=== PATIENT | female | born 1950 | race Caucasian/White ===

== ENCOUNTER 2016-12-27 22:55 | Emergency (ER) | payer MEDICARE, OTHER ==
[2016-12-27 23:59] LABS: HEMOGLOBIN 14.6 gm/dl (12.3-15.3); RED BLOOD COUNT 4.35 M/UL (4.00-5.10); WHITE BLOOD COUNT 8.1 K/UL (4.5-11.0)
[2016-12-28 00:13] LABS: BUN/CREATININE RATIO 24 (0-10)
== END 2016-12-28 00:46 | disposition home or self-care (01) ==
LOC: ER1 22:55
PROVIDERS: Family Medicine
DX: E11.649 Type 2 diabetes mellitus with hypoglycemia without coma (principal); E87.6 Hypokalemia; I10 Essential (primary) hypertension; F17.200 Nicotine dependence, unspecified, uncomplicated; Z95.1 Presence of aortocoronary bypass graft; Z95.5 Presence of coronary angioplasty implant and graft; Z79.4 Long term (current) use of insulin; Z79.84 Long term (current) use of oral hypoglycemic drugs; Z79.899 Other long term (current) drug therapy
CPT/HCPCS: 36415; 80053; 82962; 85025; 96374; 99285

== ENCOUNTER 2020-08-05 13:24 | Inpatient (IN) | payer MEDICARE ==
[~2020-08-05] VITALS: Ht 160 cm; Wt 59.0 kg
[~2020-08-05 13:24] MED LIST: BACTRIM DS TAB1 EACH PO; COREG6.25 MG PO; CYMBALTA 30 MG30 MG PO; DITROPAN XL5 MG PO; ECOTRIN325 MG PO; FOLIC ACID 1 MG1 MG PO; GLUCOPHAGE1000 MG PO; HABITROL 14 MG P1 EA TD; LORTAB 7.5-3251 EACH PO; METHOTREXATE T2.5 MG PO; NORCO 10-325 T1 EACH PO; NORCO 5-325 TA1 EACH PO; NOVOLOG 10100 UNITS1 SC; NOVOLOG FL100 UNIT/1 SC; OMNICEF 300 MG300 MG PO; PLAVIX 75 MG TA75 MG PO; PRINIVIL20 MG PO; PROTONIX40 MG PO; VITAMIN D250000 UNIT PO; ZOCOR40 MG PO; ZOFRAN ODT 4 MG4 MG PO
[2020-08-05 13:56] LABS: HEMOGLOBIN 9.8 gm/dl (12.3-15.3); RED BLOOD COUNT 3.82 M/UL (4.00-5.10); WHITE BLOOD COUNT 7.3 K/UL (4.5-11.0)
[2020-08-05 14:25] LABS: BUN/CREATININE RATIO 17 (0-10)
[2020-08-05] MEDS ORDERED: ALL DAY ALLERGY10 M2 PO (17:56)
[2020-08-05] MEDS ORDERED: HYGROTON TAB 2525 MG PO (17:58)
[2020-08-05] MEDS ORDERED: HYDROCODON-ACE1 EAC6 PO (18:00)
[2020-08-05] MEDS ORDERED: ZOFRAN 4 MG TAB4 MG PO (18:02)
[2020-08-05] MEDS ORDERED: NASONEX17 GM (18:03)
[2020-08-06 03:25] LABS: HEMOGLOBIN 8.2 gm/dl (12.3-15.3); RED BLOOD COUNT 3.31 M/UL (4.00-5.10)
[2020-08-06 03:50] LABS: BUN/CREATININE RATIO 20 (0-10)
[2020-08-07 05:58] LABS: HEMOGLOBIN 8.3 gm/dl (12.3-15.3); RED BLOOD COUNT 3.26 M/UL (4.00-5.10)
[2020-08-07 05:59] LABS: WHITE BLOOD COUNT 5.1 K/UL (4.5-11.0)
[2020-08-07 06:19] LABS: BUN/CREATININE RATIO 20 (0-10)
[2020-08-08 04:14] LABS: BUN/CREATININE RATIO 26 (0-10)
[2020-08-09 01:44] LABS: BUN/CREATININE RATIO 18 (0-10)
[2020-08-09] MEDS ORDERED: DOXYCYCLINE HY100 MG PO (08:48)
[2020-08-09] MEDS ORDERED: OMNICEF 300 MG300 MG PO (08:48)
--- NOTE | 2020-08-09 15:18 | NUR ---
1130 SPOKE WITH LUCAS NOVAK ABOUT PT HH. TOLD HER THAT PT REQUESTED THAT SHE GET [facility]. LUCAS NOVAK SAID THAT SHE WAS WORKING ON IT AND SENDING THE REFERRAL. 1400 ATTEMPTED TO CONTACT LUCAS NOVAK FOR HH UPDATE, UNABLE TO REACH HER. I CALLED [facility] AND THEY SAID THAT THEY DID NOT TAKE THE PATIENTS INSURANCE. I THEN CALLED LUCAS NOVAK AGAIN TO LEAVE MESSAGE TELLING HER THAT PT DIDNT WANT TO WAIT TO BE DISCHARGED AND WOULD BE GOING HOME. ALSO ABOUT [facility] NOT ACCEPTING HER INSURANCE. NOTIFED KEKE FRY, OF PATIENT DISCHARGING WITHOUT HOME HEALTH BEING CONFIRMED YET PER PATIENT REQUEST.
[2021-01-28] MEDS ORDERED: LEVEMIR FL100 UNIT/1 SQ (08:52)
== END 2020-08-09 16:00 | disposition home health service (06) | DRG 871 ==
LOC: ER1 13:24 → CDU 17:03 → M/S 17:03
PROVIDERS: Family Medicine; ADMIT Internal Medicine
PROC: B24BZZZ Ultrasonography of Heart with Aorta (ICD-10-PCS; principal; 2020-08-06)
DX: A41.9 Sepsis, unspecified organism (principal); J18.9 Pneumonia, unspecified organism; E87.2 Acidosis; N17.9 Acute kidney failure, unspecified; Z20.822 Contact with and (suspected) exposure to COVID-19; I25.10 Atherosclerotic heart disease of native coronary artery without angina pectoris; D64.9 Anemia, unspecified; E11.65 Type 2 diabetes mellitus with hyperglycemia; E11.649 Type 2 diabetes mellitus with hypoglycemia without coma; R42 Dizziness and giddiness; G89.29 Other chronic pain; M25.569 Pain in unspecified knee; E11.51 Type 2 diabetes mellitus with diabetic peripheral angiopathy without gangrene; M06.9 Rheumatoid arthritis, unspecified; E78.5 Hyperlipidemia, unspecified; R00.1 Bradycardia, unspecified; F17.210 Nicotine dependence, cigarettes, uncomplicated; R77.8 Other specified abnormalities of plasma proteins; E86.1 Hypovolemia; T68.XXXA Hypothermia, initial encounter; Z85.3 Personal history of malignant neoplasm of breast; Z95.5 Presence of coronary angioplasty implant and graft; Z90.49 Acquired absence of other specified parts of digestive tract; Z79.02 Long term (current) use of antithrombotics/antiplatelets; Z79.4 Long term (current) use of insulin; Z79.899 Other long term (current) drug therapy; Z88.5 Allergy status to narcotic agent; Z88.8 Allergy status to other drugs, medicaments and biological substances; Z79.82 Long term (current) use of aspirin; Z95.820 Peripheral vascular angioplasty status with implants and grafts; Z91.81 History of falling
CPT/HCPCS: ECHO; 36415; 71045; 80048; 80053; 81001; 82550; 82553; 82962; 83036; 83540; 83550; 83605; 83690; 83735; 83874; 84484; 85025; 85027; 85610; 87040; 93005; 93306; 96365; 96375; 97116-GP-CQ; 97161; 97530-GP-CQ; 99285; J0696; J1650; J2405; J7030; J8610; U0002

== ENCOUNTER 2020-12-21 22:18 | Inpatient (IN) | payer MEDICARE ==
[~2020-12-21] VITALS: Ht 162.6 cm; Wt 52.2 kg
[~2020-12-21 22:18] MED LIST changes: +ALL DAY ALLERGY10 M2 PO; +DOXYCYCLINE HY100 MG PO; +HYDROCODON-ACE1 EAC6 PO; +HYGROTON TAB 2525 MG PO; +NASONEX17 GM; +ZOFRAN 4 MG TAB4 MG PO
[2020-12-21 23:19] LABS: HEMOGLOBIN 9.7 gm/dl (12.3-15.3); RED BLOOD COUNT 3.94 M/UL (4.00-5.10)
[2020-12-21 23:42] LABS: BUN/CREATININE RATIO 19 (0-10)
[2020-12-22] MEDS ORDERED: MACRODANTIN100 MG PO (09:06)
[2020-12-22] MEDS ORDERED: PYRIDIUM100 MG PO (09:07)
[2020-12-22] MEDS ORDERED: VOLTAREN100 GM TP (09:09)
[2020-12-22] MEDS ORDERED: BACTROBAN OINT22 GM TOP (09:14)
[2020-12-22] MEDS ORDERED: NITROSTAT 0.40.4 MG SL (09:16)
[2020-12-22] MEDS ORDERED: SILVADENE20 GM TOP (09:17)
[2020-12-22 10:25] LABS: BUN/CREATININE RATIO 20 (0-10)
[2020-12-23 10:16] LABS: HEMOGLOBIN 8.3 gm/dl (12.3-15.3); RED BLOOD COUNT 3.25 M/UL (4.00-5.10); WHITE BLOOD COUNT 7.5 K/UL (4.5-11.0)
[2020-12-23 10:35] LABS: BUN/CREATININE RATIO 17 (0-10)
[2021-01-28] MEDS ORDERED: LEVEMIR FL100 UNIT/1 SQ (08:52)
== END 2020-12-23 19:15 | disposition home or self-care (01) | DRG 310 ==
LOC: ER1 22:18 → CDU 12-22 02:33 → MED SURG 4 12-23 03:45
PROVIDERS: Emergency Medicine; Internal Medicine; ADMIT Internal Medicine
DX: I48.0 Paroxysmal atrial fibrillation (principal); I25.119 Atherosclerotic heart disease of native coronary artery with unspecified angina pectoris; R11.2 Nausea with vomiting, unspecified; I45.10 Unspecified right bundle-branch block; Z20.822 Contact with and (suspected) exposure to COVID-19; M06.9 Rheumatoid arthritis, unspecified; F17.210 Nicotine dependence, cigarettes, uncomplicated; I10 Essential (primary) hypertension; E11.51 Type 2 diabetes mellitus with diabetic peripheral angiopathy without gangrene; K21.9 Gastro-esophageal reflux disease without esophagitis; E86.0 Dehydration; I25.2 Old myocardial infarction; Z79.82 Long term (current) use of aspirin; Z79.01 Long term (current) use of anticoagulants; Z79.899 Other long term (current) drug therapy; Z79.4 Long term (current) use of insulin; Z99.3 Dependence on wheelchair; Z95.5 Presence of coronary angioplasty implant and graft; Z90.49 Acquired absence of other specified parts of digestive tract; Z88.6 Allergy status to analgesic agent; Z88.8 Allergy status to other drugs, medicaments and biological substances; Z87.440 Personal history of urinary (tract) infections
CPT/HCPCS: 36415; 71045; 80048; 80053; 80307; 81001; 82550; 82553; 82962; 83735; 83874; 83880; 84439; 84443; 84484; 85025; 85027; 87086; 93005; 96374; 99285; J1650; J3480; U0002

== ENCOUNTER 2021-01-28 11:37 | Inpatient (IN) | payer MEDICARE ==
[~2021-01-28] VITALS: Ht 162.6 cm; Wt 56.7 kg
[~2021-01-28 11:37] MED LIST changes: +BACTROBAN OINT22 GM TOP; +GLUCOPHAGE 500500 MG PO; -GLUCOPHAGE1000 MG PO; +MACRODANTIN100 MG PO; -METHOTREXATE T2.5 MG PO; +NITROSTAT 0.40.4 MG SL; +PYRIDIUM100 MG PO; +SILVADENE20 GM TOP; +VOLTAREN100 GM TP
[2021-01-28 13:55] LABS: HEMOGLOBIN 7.5 gm/dl (12.3-15.3); RED BLOOD COUNT 3.12 M/UL (4.00-5.10); WHITE BLOOD COUNT 7.4 K/UL (4.5-11.0)
[2021-01-28] MEDS ORDERED: BACTRIM DS TAB1 EACH PO (17:04)
[2021-01-28] MEDS ORDERED: ELIQUIS5 MG PO (17:04)
[2021-01-28] MEDS ORDERED: HUMALOG100 UNIT/3 SC (18:07)
[2021-01-29 02:57] LABS: RED BLOOD COUNT 2.84 M/UL (4.00-5.10); WHITE BLOOD COUNT 6.6 K/UL (4.5-11.0)
[2021-01-29 03:02] LABS: HEMOGLOBIN 6.6 gm/dl (12.3-15.3)
[2021-01-29 03:39] LABS: BUN/CREATININE RATIO 18 (0-10)
[2021-01-30 05:27] LABS: HEMOGLOBIN 8.6 gm/dl (12.3-15.3); RED BLOOD COUNT 3.5 M/UL (4.00-5.10); WHITE BLOOD COUNT 10.5 K/UL (4.5-11.0)
[2021-01-31 02:17] LABS: HEMOGLOBIN 8.3 gm/dl (12.3-15.3); RED BLOOD COUNT 3.31 M/UL (4.00-5.10); WHITE BLOOD COUNT 8.2 K/UL (4.5-11.0)
--- NOTE | 2021-01-31 18:27 | NUR ---
DR. HAMLIN WAS NOTIFIED OF EVOLVING CONDITION OF THE PATIENT. SYSTOLIC BP OF PATIENT UPON ENTRY TO THE ROOM WAS IN THE 80'S, BUT HAD RISEN TO 97/53. ORDERED 1 LITER BOLUS OF NORMAL SALINE, AND THEN THE PRESCRIBED DOSE OF CARDIZEM ONCE THE PATIENT'S BLOOD PRESSURE HAS STABILIZED. WILL CONTINUE TO MONITOR.
--- NOTE | 2021-01-31 19:49 | NUR ---
VITAL SIGN TRENDS WHILE MEDICATIONS WERE GIVEN 1819 98/46 1828 102/57 1838 108/50 1845 115/69
[2021-02-02 02:30] LABS: HEMOGLOBIN 10.2 gm/dl (12.3-15.3); WHITE BLOOD COUNT 7.1 K/UL (4.5-11.0)
[2021-02-02 02:31] LABS: RED BLOOD COUNT 4.06 M/UL (4.00-5.10)
[2021-02-02 03:02] LABS: BUN/CREATININE RATIO 11 (0-10)
[2021-02-03 02:45] LABS: HEMOGLOBIN 9.3 gm/dl (12.3-15.3); RED BLOOD COUNT 3.73 M/UL (4.00-5.10); WHITE BLOOD COUNT 7.1 K/UL (4.5-11.0)
[2021-02-03 03:12] LABS: BUN/CREATININE RATIO 12 (0-10)
[2021-02-04 02:41] LABS: HEMOGLOBIN 10.1 gm/dl (12.3-15.3); RED BLOOD COUNT 4.04 M/UL (4.00-5.10)
[2021-02-04 02:44] LABS: WHITE BLOOD COUNT 9.5 K/UL (4.5-11.0)
[2021-02-04 03:20] LABS: BUN/CREATININE RATIO 17 (0-10)
[2021-02-05 05:02] LABS: RED BLOOD COUNT 3.92 M/UL (4.00-5.10); WHITE BLOOD COUNT 8.5 K/UL (4.5-11.0)
[2021-02-05 05:33] LABS: BUN/CREATININE RATIO 21 (0-10)
[2021-02-06 03:13] LABS: HEMOGLOBIN 9.5 gm/dl (12.3-15.3); RED BLOOD COUNT 3.85 M/UL (4.00-5.10); WHITE BLOOD COUNT 8.8 K/UL (4.5-11.0)
[2021-02-06 03:31] LABS: BUN/CREATININE RATIO 22 (0-10)
[2021-02-07 03:16] LABS: RED BLOOD COUNT 3.65 M/UL (4.00-5.10); WHITE BLOOD COUNT 8.7 K/UL (4.5-11.0)
[2021-02-08 03:45] LABS: HEMOGLOBIN 9.7 gm/dl (12.3-15.3); RED BLOOD COUNT 3.94 M/UL (4.00-5.10); WHITE BLOOD COUNT 10.1 K/UL (4.5-11.0)
--- NOTE | 2021-02-08 23:49 | NUR ---
PT REQUESTED WE CALL FAMILY ON HER BEHAVE TO LET THEM KNOW ABOUT HER STATUS CHANGE. ATTEMPTED TO CALL GHULAM, SON, AT 2340 TO NO ANSWER AND A FULL VOICE MAILBOX, UNABLE TO LEAVE A MESSAGE. CALLED SHABANA, SISTER, AND LET HER KNOW ABOUT THE CHANGES TO THE PATIENT, AT 2344.
[2021-02-09 00:15] LABS: HEMOGLOBIN 9.8 gm/dl (12.3-15.3); RED BLOOD COUNT 4.07 M/UL (4.00-5.10)
[2021-02-09 00:23] LABS: WHITE BLOOD COUNT 14.8 K/UL (4.5-11.0)
[2021-02-09 01:00] LABS: BUN/CREATININE RATIO 27 (0-10)
[2021-02-09 03:25] LABS: HEMOGLOBIN 9.9 gm/dl (12.3-15.3); RED BLOOD COUNT 4.03 M/UL (4.00-5.10); WHITE BLOOD COUNT 12.8 K/UL (4.5-11.0)
[2021-02-10 06:53] LABS: RED BLOOD COUNT 3.61 M/UL (4.00-5.10); WHITE BLOOD COUNT 13.1 K/UL (4.5-11.0)
[2021-02-11 03:41] LABS: HEMOGLOBIN 9.2 gm/dl (12.3-15.3); RED BLOOD COUNT 3.73 M/UL (4.00-5.10); WHITE BLOOD COUNT 12.3 K/UL (4.5-11.0)
--- NOTE | 2021-02-11 10:55 | NUR ---
received call from telemetry statin patient's pulse goes to 140's and back to 120's. informed her that just given her morning medication and to continue to watch and to let me know if it goes back up again
--- NOTE | 2021-02-11 14:09 | NUR ---
patient having episode of vomitting and given zpfran. curently dr. carrero with patient and assessing patient. dr. carrero request for me to get in touch with the family.
--- NOTE | 2021-02-11 18:03 | NUR ---
informed dr. carrero patient episodes of increase pulse 120's to 140's. acknowledged
[2021-02-12 07:06] LABS: HEMOGLOBIN 9.1 gm/dl (12.3-15.3); RED BLOOD COUNT 3.78 M/UL (4.00-5.10); WHITE BLOOD COUNT 14.8 K/UL (4.5-11.0)
[2021-02-12 07:27] LABS: BUN/CREATININE RATIO 36 (0-10)
[2021-02-13 06:34] LABS: HEMOGLOBIN 9.3 gm/dl (12.3-15.3); RED BLOOD COUNT 3.68 M/UL (4.00-5.10); WHITE BLOOD COUNT 17.5 K/UL (4.5-11.0)
[2021-02-13] MEDS ORDERED: CARDIZEM 60MG T60 MG PO (10:57)
[2021-02-13] MEDS ORDERED: AMIODARONE HCL200 MG PO (10:57)
[2021-02-13] MEDS ORDERED: LOPRESSOR 50 MG50 MG PO (10:57)
[2021-02-13] MEDS ORDERED: FERROUS GLUCON324 M1 PO (10:57)
[2021-02-13] MEDS ORDERED: AUGMENTIN 500-500 MG PO (11:02)
== END 2021-02-13 16:15 | DRG 377 ==
LOC: ER1 11:37 → CDU 16:23 → M/S 19:11 → PROG CARE 01-30 11:08 → MED SURG 4 02-08 22:30 → PROG CARE 02-08 23:22 → M/S 02-09 08:00
PROVIDERS: Internal Medicine; Internal Medicine Gastroenterology; Internal Medicine Infectious Disease; Physician Assistant; Physician Assistant Medical; ADMIT Internal Medicine
PROC: 30233N1 Transfusion of Nonautologous Red Blood Cells into Peripheral Vein, Percutaneous Approach (ICD-10-PCS; 2021-01-29)
PROC: 0DJ08ZZ Inspection of Upper Intestinal Tract, Via Natural or Artificial Opening Endoscopic (ICD-10-PCS; principal; 2021-01-30 12:19)
PROC: 0DJD8ZZ Inspection of Lower Intestinal Tract, Via Natural or Artificial Opening Endoscopic (ICD-10-PCS; 2021-02-02)
PROC: B24BZZZ Ultrasonography of Heart with Aorta (ICD-10-PCS; 2021-02-02)
DX: K92.2 Gastrointestinal hemorrhage, unspecified (principal); J81.0 Acute pulmonary edema; J18.9 Pneumonia, unspecified organism; N30.00 Acute cystitis without hematuria; I42.9 Cardiomyopathy, unspecified; I48.20 Chronic atrial fibrillation, unspecified; F11.20 Opioid dependence, uncomplicated; E44.0 Moderate protein-calorie malnutrition; Z20.822 Contact with and (suspected) exposure to COVID-19; M06.9 Rheumatoid arthritis, unspecified; F17.210 Nicotine dependence, cigarettes, uncomplicated; I25.10 Atherosclerotic heart disease of native coronary artery without angina pectoris; E11.51 Type 2 diabetes mellitus with diabetic peripheral angiopathy without gangrene; I11.9 Hypertensive heart disease without heart failure; K52.9 Noninfective gastroenteritis and colitis, unspecified; R54 Age-related physical debility; Z66 Do not resuscitate; E78.5 Hyperlipidemia, unspecified; K21.00 Gastro-esophageal reflux disease with esophagitis, without bleeding; D63.8 Anemia in other chronic diseases classified elsewhere; D50.9 Iron deficiency anemia, unspecified; R00.0 Tachycardia, unspecified; J44.9 Chronic obstructive pulmonary disease, unspecified; R77.8 Other specified abnormalities of plasma proteins; K64.8 Other hemorrhoids; I45.10 Unspecified right bundle-branch block; Z82.49 Family history of ischemic heart disease and other diseases of the circulatory system; Z88.5 Allergy status to narcotic agent; Z79.01 Long term (current) use of anticoagulants; Z95.1 Presence of aortocoronary bypass graft; Z95.5 Presence of coronary angioplasty implant and graft; Z91.040 Latex allergy status; Z88.8 Allergy status to other drugs, medicaments and biological substances; Z79.82 Long term (current) use of aspirin; Z79.4 Long term (current) use of insulin; Z79.899 Other long term (current) drug therapy; Z68.21 Body mass index [BMI] 21.0-21.9, adult; Z86.718 Personal history of other venous thrombosis and embolism
CPT/HCPCS: ECHO; 36415; 36430; 51701; 71046; 80048; 80053; 80307; 81001; 82272; 82550; 82553; 82565; 82947; 82962; 83540; 83550; 83605; 83690; 83735; 83880; 84100; 84146; 84484; 85025; 85027; 85610; 86140; 86850; 86900; 86901; 86920; 87040; 87086; 93005; 93306; 96374; 96376; 97162; 99285; A6212; G0378; J0696; J1160; J1335; J1940; J2001; J2370; J2405; J2550; J2704; J3370; J7030; J7040; J8610; P9016; U0002

== ENCOUNTER 2021-02-16 14:34 | Inpatient (IN) | payer MEDICARE ==
[~2021-02-16] VITALS: Ht 162.6 cm; Wt 60.8 kg
[~2021-02-16 14:34] MED LIST changes: +AMIODARONE HCL200 MG PO; +AUGMENTIN 500-500 MG PO; +CARDIZEM 60MG T60 MG PO; +ELIQUIS5 MG PO; +FERROUS GLUCON324 M1 PO; +HUMALOG100 UNIT/3 SC; +LOPRESSOR 50 MG50 MG PO
[2021-02-16 16:54] LABS: HEMOGLOBIN 8.8 gm/dl (12.3-15.3); RED BLOOD COUNT 3.52 M/UL (4.00-5.10); WHITE BLOOD COUNT 14.2 K/UL (4.5-11.0)
[2021-02-17 05:11] LABS: HEMOGLOBIN 8.1 gm/dl (12.3-15.3); RED BLOOD COUNT 3.26 M/UL (4.00-5.10)
[2021-02-17] MEDS ORDERED: LANTUS SOL100 UNIT/1 IM (08:52)
[2021-02-17] MEDS ORDERED: METHOTREXATE T2.5 MG PO (08:57)
[2021-02-18 07:20] LABS: HEMOGLOBIN 7.8 gm/dl (12.3-15.3); RED BLOOD COUNT 3.1 M/UL (4.00-5.10)
[2021-02-19 04:41] LABS: HEMOGLOBIN 8.7 gm/dl (12.3-15.3); WHITE BLOOD COUNT 17.9 K/UL (4.5-11.0)
[2021-02-19 04:48] LABS: RED BLOOD COUNT 3.49 M/UL (4.00-5.10)
[2021-02-20 05:28] LABS: HEMOGLOBIN 9.1 gm/dl (12.3-15.3); RED BLOOD COUNT 3.69 M/UL (4.00-5.10)
[2021-02-20 05:31] LABS: WHITE BLOOD COUNT 12.9 K/UL (4.5-11.0)
--- NOTE | 2021-02-20 17:49 | NUR ---
attempted to notify dr. andrews of afib with rvr, no response. awaiting return phone call after leaving message.
--- NOTE | 2021-02-20 17:57 | NUR ---
new order from dr. andrews to give po dose of digoxin now. notified pharmacy.
--- NOTE | 2021-02-21 06:09 | NUR ---
unable to hang vancomycin at 0600 will notify [facility] in report vanc trough still pending
[2021-02-22] MEDS ORDERED: ATORVASTATIN CA10 MG PO (10:53)
[2021-02-22] MEDS ORDERED: DIGOX125 MCG PO (10:56)
[2021-02-22] MEDS ORDERED: LOPRESSOR 25 MG25 MG PO (10:56)
--- NOTE | 2021-02-22 13:11 | NUR ---
received call from [facility] no bed reserved for patient . will not be able for patient to transfer to long term today
--- NOTE | 2021-02-22 16:45 | NUR ---
patient pulse has been ranging from 130's and no less than 90's and patient wheezing noted reported to dr. andrews and received order.
--- NOTE | 2021-02-22 18:13 | NUR ---
patient resting comfortably, denies pain, pulse ranges 90-104.
--- NOTE | 2021-02-23 12:35 | NUR ---
reported to admitting nurse gaby of patient condtion.
--- NOTE | 2021-02-23 13:58 | NUR ---
notified dr. andrews of patient's bhatt catheter and received order send patient with bhatt
[2021-02-24] MEDS ORDERED: CLARITIN10 MG PO (12:19)
== END 2021-02-23 13:49 | DRG 871 ==
LOC: ER1 14:34 → CDU 19:45 → CCU 19:45 → M/S 02-18 15:26
PROVIDERS: Internal Medicine; Physician Assistant; ADMIT Internal Medicine
DX: A41.9 Sepsis, unspecified organism (principal); R65.21 Severe sepsis with septic shock; J18.9 Pneumonia, unspecified organism; Z20.822 Contact with and (suspected) exposure to COVID-19; I21.A1 Myocardial infarction type 2; E43 Unspecified severe protein-calorie malnutrition; G93.41 Metabolic encephalopathy; N17.9 Acute kidney failure, unspecified; I50.22 Chronic systolic (congestive) heart failure; I42.9 Cardiomyopathy, unspecified; R64 Cachexia; N39.0 Urinary tract infection, site not specified; E87.2 Acidosis; D84.821 Immunodeficiency due to drugs; I13.0 Hypertensive heart and chronic kidney disease with heart failure and stage 1 through stage 4 chronic kidney disease, or unspecified chronic kidney disease; Z66 Do not resuscitate; N18.30 Chronic kidney disease, stage 3 unspecified; I25.10 Atherosclerotic heart disease of native coronary artery without angina pectoris; E86.1 Hypovolemia; I48.0 Paroxysmal atrial fibrillation; L89.156 Pressure-induced deep tissue damage of sacral region; E11.22 Type 2 diabetes mellitus with diabetic chronic kidney disease; D63.1 Anemia in chronic kidney disease; I73.9 Peripheral vascular disease, unspecified; F17.210 Nicotine dependence, cigarettes, uncomplicated; R53.81 Other malaise; K21.9 Gastro-esophageal reflux disease without esophagitis; I11.0 Hypertensive heart disease with heart failure; Z79.01 Long term (current) use of anticoagulants; Z95.5 Presence of coronary angioplasty implant and graft; Z95.1 Presence of aortocoronary bypass graft; Z79.4 Long term (current) use of insulin; Z90.49 Acquired absence of other specified parts of digestive tract; Z87.440 Personal history of urinary (tract) infections; Z74.01 Bed confinement status; Z68.22 Body mass index [BMI] 22.0-22.9, adult
CPT/HCPCS: 36415; 70450; 71045; 80048; 80053; 80202; 81001; 82550; 82553; 82803; 82962; 83605; 83735; 83874; 84484; 84550; 85025; 85027; 85610; 85730; 87040; 87086; 93005; 94664; 96365; 96375; 99285; A6212; J1160; J1335; J1940; J3370; J7030; J7070; U0002

== ENCOUNTER 2021-02-24 07:17 | Inpatient (IN) | payer MEDICARE ==
[~2021-02-24] VITALS: Ht 162.6 cm; Wt 54.4 kg
[~2021-02-24 07:17] MED LIST changes: +ATORVASTATIN CA10 MG PO; +DIGOX125 MCG PO; +LANTUS SOL100 UNIT/1 IM; +LOPRESSOR 25 MG25 MG PO; +METHOTREXATE T2.5 MG PO
[2021-02-24 09:00] LABS: HEMOGLOBIN 9.6 gm/dl (12.3-15.3); RED BLOOD COUNT 3.76 M/UL (4.00-5.10); WHITE BLOOD COUNT 15.4 K/UL (4.5-11.0)
[2021-02-24 09:30] LABS: BUN/CREATININE RATIO 22 (0-10)
[2021-02-24] MEDS ORDERED: CLARITIN10 MG PO (12:19)
--- NOTE | 2021-02-24 15:23 | NUR ---
PATIENT ARRIVES ON FLOOR AT 1450 FROM ER. AGREE WITH ER NURSE SALLIE ASSESSMENT.
--- NOTE | 2021-02-24 15:34 | NUR ---
PATIENT ARRIVES ON FLOOR WITH WOUND TO THE COCCYX. PICTURES TAKEN AND ALEVYN APPLIED.
[2021-02-25 03:21] LABS: HEMOGLOBIN 8.5 gm/dl (12.3-15.3); WHITE BLOOD COUNT 14.3 K/UL (4.5-11.0)
[2021-02-25 03:56] LABS: RED BLOOD COUNT 3.38 M/UL (4.00-5.10)
== END 2021-02-25 11:25 | disposition expired | DRG 871 ==
LOC: ER1 07:17 → CDU 10:34 → PROG CARE 15:16
PROVIDERS: Emergency Medicine; Physician Assistant; ADMIT Internal Medicine
PROC: 5A09357 Assistance with Respiratory Ventilation, Less than 24 Consecutive Hours, Continuous Positive Airway Pressure (ICD-10-PCS; principal; 2021-02-24)
DX: A41.9 Sepsis, unspecified organism (principal); N17.0 Acute kidney failure with tubular necrosis; J96.21 Acute and chronic respiratory failure with hypoxia; I50.23 Acute on chronic systolic (congestive) heart failure; E43 Unspecified severe protein-calorie malnutrition; J69.0 Pneumonitis due to inhalation of food and vomit; I21.A1 Myocardial infarction type 2; T83.511A Infection and inflammatory reaction due to indwelling urethral catheter, initial encounter; N30.01 Acute cystitis with hematuria; T83.83XA Hemorrhage due to genitourinary prosthetic devices, implants and grafts, initial encounter; R65.20 Severe sepsis without septic shock; Z51.5 Encounter for palliative care; Z66 Do not resuscitate; Z20.822 Contact with and (suspected) exposure to COVID-19; I11.0 Hypertensive heart disease with heart failure; L89.151 Pressure ulcer of sacral region, stage 1; I25.5 Ischemic cardiomyopathy; I48.91 Unspecified atrial fibrillation; Y83.9 Surgical procedure, unspecified as the cause of abnormal reaction of the patient, or of later complication, without mention of misadventure at the time of the procedure; Z96.611 Presence of right artificial shoulder joint; E11.51 Type 2 diabetes mellitus with diabetic peripheral angiopathy without gangrene; D64.9 Anemia, unspecified; M06.9 Rheumatoid arthritis, unspecified; K21.9 Gastro-esophageal reflux disease without esophagitis; Z87.891 Personal history of nicotine dependence; Z95.1 Presence of aortocoronary bypass graft; Z80.49 Family history of malignant neoplasm of other genital organs; Z95.5 Presence of coronary angioplasty implant and graft; Z79.01 Long term (current) use of anticoagulants; Z88.5 Allergy status to narcotic agent; Z88.8 Allergy status to other drugs, medicaments and biological substances; Z91.041 Radiographic dye allergy status; Z91.040 Latex allergy status; Z68.20 Body mass index [BMI] 20.0-20.9, adult
CPT/HCPCS: 36415; 36600; 71045; 80048; 80053; 81001; 82550; 82553; 82803; 82962; 83605; 83690; 83735; 83880; 84100; 84484; 85025; 87040; 87086; 93005; 93971; 94660; 94760; 96374; 99285; J0692; J0696; J1650; J1940; J2270; J3370; J7070; P9047; Q0177; U0002